=== PATIENT | male | born 1945 | race Caucasian/White ===

== ENCOUNTER 2018-03-20 17:26 | Emergency (ER) | payer MEDICARE ==
[~2018-03-20] VITALS: Ht 167.6 cm; Wt 81.2 kg
[2018-03-20] MEDS ORDERED: IV NORMAL SALINE 1000ML BAG 1,000 ML IV ONE (18:00)
[2018-03-20] MEDS ORDERED: fentaNYL PF VIAL 100 MCG/2 ML VIAL IV ONE (18:00)
[2018-03-20 18:40] VITALS: BP 194/86
[2018-03-20 18:40] LABS: BASO % 0 % (0-3); EOS # 0.3 x10^3/uL (0.0-0.7); EOS % 3 % (0-3); HEMATOCRIT 40.5 % (39.0-53.0); HEMOGLOBIN 14.4 g/dL (13.0-17.5); LYMPH # 1.7 x10^3/uL (1.0-4.8); LYMPH % 20 % (24-48); MEAN CORPUSCULAR HEMOGLOBIN 34 pg (25-35); MEAN CORPUSCULAR HGB CONC 36 g/dL (31-37); MEAN CORPUSCULAR VOLUME 95 fL (79-100); MONO # 0.8 x10^3/uL (0.0-1.1); MONO % 9 % (0-9); NEUT # 5.8 x10^3uL (1.8-7.7); NEUT % 67 % (31-73); PLATELET COUNT 199 x10^3/uL (140-400); RED BLOOD COUNT 4.28 x10^6/uL (4.30-5.70); RED CELL DISTRIBUTION WIDTH 13.1 % (11.5-14.5); WHITE BLOOD COUNT 8.6 x10^3/uL (4.0-11.0)
[2018-03-20 18:50] LABS: CALCIUM 9.5 mg/dL (8.5-10.1); GFR 73.2; POTASSIUM 4.3 mmol/L (3.5-5.1); PROTHROMBIN TIME PATIENT 14.5 SEC (11.7-14.0)
[2018-03-20] MEDS ORDERED: IOHEXOL 300 MG/ML 100ML VIAL. IV ONE (19:00)
[2018-03-20] MEDS ORDERED: CONTRAST GIVEN. MC PRN (19:00)
--- NOTE | 2018-03-20 19:25 | RAD ---
AP portable chest radiograph 03/20/2018 Clinical History: Fall with chest pain. An AP erect portable digital radiograph of the chest was obtained. Comparison study is dated 03/25/2004. The patient is post CABG procedure. The cardiac silhouette is mildly enlarged. The thoracic aorta is tortuous. No acute pulmonary infiltrate is seen. No pleural effusion or pneumothorax is noted. An acute fracture of the distal diaphysis of the left clavicle is seen. The distal fracture fragment is displaced superiorly with slight overriding of the fracture fragments noted. IMPRESSION: 1. Acute fracture of the distal left clavicle. 2. No additional acute abnormality is seen. Electronically signed by: Leo Sheridan MD (03/20/2018 7:22 PM) [facility]
--- NOTE | 2018-03-20 19:33 | RAD ---
CT scan of the head without contrast March 20, 2018 Clinical History: Fall down 13 stairs. Head injury. Technique: Unenhanced, contiguous, 5 mm axial sections were obtained through the head. One or more of the following individualized dose reduction techniques were utilized for this study: 1. Automated exposure control. 2. Adjustment of the mA and/or kV according to patient size. 3. Use of iterative reconstruction technique. Findings: No previous studies are available for comparison. There is generalized parenchymal atrophy. Areas of decreased attenuation are seen within the periventricular and subcortical white matter of both cerebral hemispheres consistent with areas of small vessel ischemic disease. No acute parenchymal abnormality is seen. No extra-axial fluid collection is noted. No skull fracture is seen. Impression: No acute intracranial abnormality is seen. CT scan of the cervical spine without contrast March 20, 2018 Clinical history: Neck pain post fall downstairs. Technique: Unenhanced, contiguous, 0.625 mm axial sections were obtained through the cervical spine. Axial, coronal and sagittal reconstructed images were obtained. One or more of the following individualized dose reduction techniques were utilized for this study: 1. Automated exposure control. 2. Adjustment of the mA and/or kV according to patient size. 3. Use of iterative reconstruction technique. Findings: Sagittal and coronal reconstructed images demonstrate minimal lateral curvature of the cervical spine, convex to the right. Degenerative changes are seen consisting of varying degrees of disc space narrowing, vertebral endplate sclerosis and minimal to mild anterior and posterior vertebral body osteophyte formation are seen throughout the mid and lower cervical disc spaces. Atherosclerotic calcification is seen in the region of the carotid bifurcations. No fracture or subluxation of the cervical vertebrae is seen. Degenerative changes are seen involving the uncovertebral and facet joints throughout the cervical disc spaces. Impression: No fracture or subluxation of the cervical vertebra is identified. Electronically signed by: Leo Sheridan MD (03/20/2018 7:30 PM) [facility]
--- NOTE | 2018-03-20 19:57 | PHYS DOC ---
Past Medical History Past Medical History: Anxiety, Diabetes-Type II, Hypertension, [place] Past Surgical History: Coronary Bypass Surgery, Other Additional Past Surgical Histo: R ELBOW, 9 CARIDAC STENTS, HERNIA REPAIR Alcohol Use: None Drug Use: None Adult General Chief Complaint Chief Complaint: TRAUMA ALERT HPI HPI Patient is a 73 year old male with history of diabetes type 2, hypertension, high cholesterol, hard of hearing, who presents today status post falling. Patient states he was walking up some steps when he tripped, he states he fell down 13 steps. He states he flipped when he fell. Patient denies any loss of consciousness, denies any neck pain. He is mostly complaining of left shoulder pain, right scapular pain, right lower rib pain, and right hip and pelvis pain. He ambulated into the emergency room. He states is on aspirin and Plavix. Review of Systems Review of Systems Constitutional: Denies fever or chills [] Eyes: Denies change in visual acuity, redness, or eye pain [] HENT: Denies nasal congestion or sore throat [] Respiratory: Reports right anterior lower rib pain. Denies cough or shortness of breath [] Cardiovascular: No additional information not addressed in HPI [] GI: Denies abdominal pain, nausea, vomiting, bloody stools or diarrhea [] : Denies dysuria or hematuria [] Musculoskeletal: Reports left shoulder pain, right scapular pain, right lower rib pain, and right hip and pelvis pain. Integument: Denies rash or skin lesions [] Neurologic: Denies headache, focal weakness or sensory changes [] All other systems were reviewed and found to be within normal limits, except as documented in this note. Current Medications Current Medications Current Medications Medications (Trade) Dose Ordered Sig/Rebecca Start Time Stop Time Status Last Admin Dose Admin Fentanyl Citrate (Fentanyl 2ml Vial) 50 mcg 1X ONCE 03/20/18 18:00 03/20/18 18:02 DC 03/20/18 18:31 50 MCG Info (CONTRAST GIVEN -- Rx MONITORING) 1 each PRN DAILY PRN 03/20/18 19:00 03/22/18 18:59 Iohexol (Omnipaque 300 Mg/ml) 75 ml 1X ONCE 03/20/18 19:00 03/20/18 19:01 DC 03/20/18 19:19 75 ML Morphine Sulfate (Morphine Sulfate) 10 mg STK-MED ONCE 03/20/18 20:45 03/20/18 20:46 DC Sodium Chloride 1,000 ml @ 1,000 mls/hr 1X ONCE 03/20/18 18:00 03/20/18 18:59 DC 03/20/18 18:32 1,000 MLS/HR Allergies Allergies Allergies Coded Allergies Type Severity Reaction Last Updated Verified No Known Drug Allergies 03/20/18 No Physical Exam Physical Exam Constitutional: Well developed, well nourished, no acute distress, non-toxic appearance. [] HENT: Normocephalic, atraumatic, bilateral external ears normal, oropharynx moist, no oral exudates, nose normal. [] Eyes: PERRLA, EOMI, conjunctiva normal, no discharge. [] Neck: Normal range of motion, no tenderness, supple, no stridor. [] Cardiovascular:Heart rate regular rhythm, no murmur [] Lungs & Thorax: Bilateral breath sounds clear to auscultation, tenderness on palpation of the right anterior ribs approximately ribs 9 and 10 mid clavicular line. Abdomen: Bowel sounds normal, soft, no tenderness, no masses, no pulsatile masses. [] Skin: Warm, dry, no erythema, no rash. [] Back: No tenderness, no CVA tenderness. [] Extremities: Left shoulder appears over sleeping home. There is tenderness of the ACM joint as well as clavicle of the left shoulder. There is limited range of motion to the left shoulder. Full range of motion to the left fingers. Adequate radial, medial, and ulnar sensation to the left upper extremity. +2 left radial pulse. Cap refill less than 2 seconds the left fingers. Right scapular with bruising. Tenderness on palpation of the scapula. Full range of motion to the right shoulder and upper extremity. +2 right radial pulse. Adequate radial, medial, ulnar sensation to the right upper extremity. +2 right radial pulse. Right hip with no obvious deformity. Diffuse tenderness of the lateral aspect of the hip. Full range of motion to the right and left hip. Adequate flexion and extension of bilateral lower extremities. +2 bilateral pedal pulses. Neurologic: Alert and oriented X 3, normal motor function, normal sensory function, no focal deficits noted. [] Psychologic: Affect normal, judgement normal, mood normal. [] Current Patient Data Vital Signs Vital Signs Date Time Temp Pulse Resp B/P (MAP) Pulse Ox O2 Delivery O2 Flow Rate FiO2 03/20/18 18:40 61 20 194/86 (122) 98 Room Air 03/20/18 17:40 98.6 98.6 Lab Values Laboratory Tests Test 03/20/18 18:30 03/20/18 19:50 White Blood Count 8.6 x10^3/uL (4.0-11.0) Red Blood Count 4.28 x10^6/uL (4.30-5.70) L Hemoglobin 14.4 g/dL (13.0-17.5) Hematocrit 40.5 % (39.0-53.0) Mean Corpuscular Volume 95 fL (79-100) Mean Corpuscular Hemoglobin 34 pg (25-35) Mean Corpuscular Hemoglobin Concent 36 g/dL (31-37) Red Cell Distribution Width 13.1 % (11.5-14.5) Platelet Count 199 x10^3/uL (140-400) Neutrophils (%) (Auto) 67 % (31-73) Lymphocytes (%) (Auto) 20 % (24-48) L Monocytes (%) (Auto) 9 % (0-9) Eosinophils (%) (Auto) 3 % (0-3) Basophils (%) (Auto) 0 % (0-3) Neutrophils # (Auto) 5.8 x10^3uL (1.8-7.7) Lymphocytes # (Auto) 1.7 x10^3/uL (1.0-4.8) Monocytes # (Auto) 0.8 x10^3/uL (0.0-1.1) Eosinophils # (Auto) 0.3 x10^3/uL (0.0-0.7) Basophils # (Auto) 0.0 x10^3/uL (0.0-0.2) Prothrombin Time 14.5 SEC (11.7-14.0) H Prothrombin Time INR 1.2 (0.8-1.1) H PTT 39 SEC (24-38) H Sodium Level 138 mmol/L (136-145) Potassium Level 4.3 mmol/L (3.5-5.1) Chloride Level 102 mmol/L (98-107) Carbon Dioxide Level 23 mmol/L (21-32) Anion Gap 13 (6-14) Blood Urea Nitrogen 26 mg/dL (8-26) Creatinine 1.0 mg/dL (0.7-1.3) Estimated GFR (Cockcroft-Gault) 73.2 Glucose Level 83 mg/dL (70-99) Calcium Level 9.5 mg/dL (8.5-10.1) Ethyl Alcohol Level < 10 mg/dL (0-10) Urine Collection Type Unknown Urine Color Yellow Urine Clarity Clear Urine pH 7.0 Urine Specific [place] 1.025 Urine Protein Negative mg/dL (NEG-TRACE) Urine Glucose (UA) Negative mg/dL (NEG) Urine Ketones (Stick) Negative mg/dL (NEG) Urine Blood Negative (NEG) Urine Nitrite Negative (NEG) Urine Bilirubin Negative (NEG) Urine Urobilinogen Dipstick 2.0 mg/dL (0.2 mg/dL) Urine Leukocyte Esterase Negative (NEG) Urine RBC Rare /HPF (0-2) Urine WBC Rare /HPF (0-4) Urine Squamous Epithelial Cells Few /LPF Urine Bacteria 0 /HPF (0-FEW) Urine Opiates Screen Neg (NEG) Urine Methadone Screen Neg (NEG) Urine Barbiturates Neg (NEG) Urine Phencyclidine Screen Neg (NEG) Urine Amphetamine/Methamphetamine Neg (NEG) Urine Benzodiazepines Screen Neg (NEG) Urine Cocaine Screen Neg (NEG) Urine Cannabinoids Screen Neg (NEG) Urine Ethyl Alcohol Neg (NEG) Laboratory Tests 03/20/18 18:30 Laboratory Tests 03/20/18 18:30 EKG EKG [] Radiology/Procedures Radiology/Procedures []PROCEDURE: CHEST AP ONLY AP portable chest radiograph 03/20/2018 Clinical History: Fall with chest pain. An AP erect portable digital radiograph of the chest was obtained. Comparison study is dated 03/25/2004. The patient is post CABG procedure. The cardiac silhouette is mildly enlarged. The thoracic aorta is tortuous. No acute pulmonary infiltrate is seen. No pleural effusion or pneumothorax is noted. An acute fracture of the distal diaphysis of the left clavicle is seen. The distal fracture fragment is displaced superiorly with slight overriding of the fracture fragments noted. IMPRESSION: 1. Acute fracture of the distal left clavicle. 2. No additional acute abnormality is seen. Electronically signed by: Leo Sheridan MD (03/20/2018 7:22 PM) [facility] DICTATED and SIGNED BY: LEO SHERIDAN MD DATE: 03/20/181918 PROCEDURE: CT CHEST ABD PELVIS W/CONTRAST CT scan of the chest, abdomen and pelvis with contrast to include a CT scan of the thoracic and lumbar spine dated 03/20/2018 CLINICAL HISTORY: Fall down 13 stairs with right-sided chest and abdominal pain. TECHNIQUE: After the intravenous administration of 75 cc of Omnipaque 300, contiguous, 5 mm axial sections were obtained through the chest, abdomen and pelvis. 3 mm reconstructed sagittal, axial and coronal images of the thoracic and lumbar spine were obtained One or more of the following individualized dose reduction techniques were utilized for this study: 1. Automated exposure control. 2. Adjustment of the mA and/or kV according to patient size. 3. Use of iterative reconstruction technique. FINDINGS: Surgical changes are seen consistent with a CABG procedure. No mediastinal hematoma is seen. Atherosclerotic calcification of the thoracic aorta and its branches is noted. The thoracic aorta is tortuous but tapers normally. There is mild cardiomegaly. Minimal dependent subsegmental atelectasis is seen involving both lungs. No area of consolidation is seen. No pneumothorax or pleural effusion is noted. An acute comminuted oblique fracture of the distal diaphysis/metaphysis of the left clavicle is seen. The major distal fracture fragment is displaced superiorly and slightly laterally. The liver has a slightly nodular contour suggestive of cirrhosis. No acute focal abnormality is seen. The spleen, pancreas, adrenal glands and left kidney are within normal limits. A 3 mm nonobstructing calculus is seen involving the lower pole of the right kidney. The gallbladder is well-distended. Atherosclerotic calcification of the abdominal aorta is seen. The abdominal aorta tapers normally. Air and stool is seen throughout the colon. There is no evidence of bowel obstruction. Images through the pelvis demonstrate the urinary bladder distended with urine. No free fluid is seen. No pelvic hematoma is noted. Very mild S-shaped curvature of the thoracolumbar spine is seen. Degenerative changes are seen involving the thoracic and throughout the lumbar spine. The patient is post lower lumbar laminectomy. No acute fracture or subluxation of the thoracic or lumbar vertebra is seen. IMPRESSION: 1. Acute comminuted fracture of the distal left clavicle. 2. No additional acute abnormality is seen. Electronically signed by: Leo Sheridan MD (03/20/2018 8:30 PM) [facility] DICTATED and SIGNED BY: LEO SHERIDAN MD DATE: 03/20/182007 PROCEDURE: CT HEAD AND CERVICAL SPINE WO CT scan of the head without contrast March 20, 2018 Clinical History: Fall down 13 stairs. Head injury. Technique: Unenhanced, contiguous, 5 mm axial sections were obtained through the head. One or more of the following individualized dose reduction techniques were utilized for this study: 1. Automated exposure control. 2. Adjustment of the mA and/or kV according to patient size. 3. Use of iterative reconstruction technique. Findings: No previous studies are available for comparison. There is generalized parenchymal atrophy. Areas of decreased attenuation are seen within the periventricular and subcortical white matter of both cerebral hemispheres consistent with areas of small vessel ischemic disease. No acute parenchymal abnormality is seen. No extra-axial fluid collection is noted. No skull fracture is seen. Impression: No acute intracranial abnormality is seen. CT scan of the cervical spine without contrast March 20, 2018 Clinical history: Neck pain post fall downstairs. Technique: Unenhanced, contiguous, 0.625 mm axial sections were obtained through the cervical spine. Axial, coronal and sagittal reconstructed images were obtained. One or more of the following individualized dose reduction techniques were utilized for this study: 1. Automated exposure control. 2. Adjustment of the mA and/or kV according to patient size. 3. Use of iterative reconstruction technique. Findings: Sagittal and coronal reconstructed images demonstrate minimal lateral curvature of the cervical spine, convex to the right. Degenerative changes are seen consisting of varying degrees of disc space narrowing, vertebral endplate sclerosis and minimal to mild anterior and posterior vertebral body osteophyte formation are seen throughout the mid and lower cervical disc spaces. Atherosclerotic calcification is seen in the region of the carotid bifurcations. No fracture or subluxation of the cervical vertebrae is seen. Degenerative changes are seen involving the uncovertebral and facet joints throughout the cervical disc spaces. Impression: No fracture or subluxation of the cervical vertebra is identified. Electronically signed by: Leo Sheridan MD (03/20/2018 7:30 PM) [facility] DICTATED and SIGNED BY: LEO SHERIDAN MD DATE: 03/20/181923 Course & Med Decision Making Course & Med Decision Making Pertinent Labs and Imaging studies reviewed. (See chart for details) This is a 73-year-old male patient presenting to the ED today after falling at home. He fell down 13 steps. No loss of consciousness. Denies any head or neck pain. He is complaining of Left shoulder pain, right scapular pain, right lower rib pain, and right hip and pelvis pain Left shoulder x-rays interpreted by radiologist were noted for-Acute comminuted fracture of the distal left clavicle. CT of the head, cervical spine, thoracic spine, lumbar spine, chest and abdomen were negative for any acute findings. Patient was discharged with hydrocodone and cyclobenzaprine as needed for pain. He was provided a sling in the ED. Ice elevation encouraged. Follow-up with orthopedic doctor by calling the office tomorrow. Dragon Disclaimer Dragon Disclaimer This electronic medical record was generated, in whole or in part, using a voice recognition dictation system. Departure Departure Impression: Primary Impression: Fall down steps Additional Impressions: Fracture of clavicle, left, closed Contusion of right hip Contusion of right scapular region Chest wall contusion Disposition: 01 HOME, SELF-CARE Condition: STABLE Referrals: ALBER NINA MD (PCP) PIERRE BRISCOE MD Call the orthopedic doctor tomorrow and set up a follow up appointment Patient Instructions: Clavicle Fracture, Contusion, Fall Prevention and Home Safety Additional Instructions: You were evaluated in the emergency room and noted to have left clavicle fracture after falling. Please contact the provided orthopedic doctor tomorrow and set up a follow-up appointment as an outpatient. Try to ice and elevate the extremity. Take the prescribed medications as needed for pain. Scripts Cyclobenzaprine Hcl (CYCLOBENZAPRINE HCL) 10 Mg Tablet 1 TAB PO TID, #30 TAB Prov: WILL OSEGUERA APRN 03/20/18 Hydrocodone/Apap 5-325 (NORCO 5-325 TABLET) 1 Each Tablet 1 TAB PO Q6HRS, #12 TAB Prov: WILL OSEGUERA INFORMATION TECHNOLOGY ADVISOR 03/20/18 Problem Qualifiers Primary Impression: Fall down steps Encounter type: initial encounter Qualified Codes: W10.8XXA - Fall (on) ( from) other stairs and steps, initial encounter Additional Impressions: Fracture of clavicle, left, closed Encounter type: initial encounter Clavicle location: lateral end Fracture alignment: nondisplaced Qualified Codes: S42.035A - Nondisplaced fracture of lateral end of left clavicle, initial encounter for closed fracture Contusion of right hip Encounter type: initial encounter Qualified Codes: S70.01XA - Contusion of right hip, initial encounter Contusion of right scapular region Encounter type: initial encounter Qualified Codes: S40.011A - Contusion of right shoulder, initial encounter Chest wall contusion Encounter type: initial encounter Laterality: right Qualified Codes: S20.211A - Contusion of right front wall of thorax, initial encounter WILL OSEGUERA APRN Mar 20, 2018 19:57
[2018-03-20 20:03] LABS: BILIRUBIN,URINE NEGATIVE (NEG); CLARITY,URINE CLEAR; COLOR,URINE YELLOW; NITRITE,URINE NEGATIVE (NEG); PROTEIN,URINE NEGATIVE (NEG-TRACE)
[2018-03-20 20:08] LABS: BARBITURATES NEG (NEG); BENZODIAZEPINES NEG (NEG); CANNABINOIDS NEG (NEG); COCAINE NEG (NEG); METHADONE NEG (NEG); OPIATES NEG (NEG); PHENCYCLIDINE NEG (NEG)
[2018-03-20 20:10] LABS: AMPHETAMINE/METHAMPHETAMINE NEG (NEG)
[2018-03-20 20:15] LABS: BACTERIA,URINE 0 /HPF (0-FEW); RBC,URINE RARE /HPF (0-2); SQUAMOUS EPITHELIAL CELL,UR FEW /LPF; WBC,URINE RARE /HPF (0-4)
--- NOTE | 2018-03-20 20:33 | RAD ---
CT scan of the chest, abdomen and pelvis with contrast to include a CT scan of the thoracic and lumbar spine dated 03/20/2018 CLINICAL HISTORY: Fall down 13 stairs with right-sided chest and abdominal pain. TECHNIQUE: After the intravenous administration of 75 cc of Omnipaque 300, contiguous, 5 mm axial sections were obtained through the chest, abdomen and pelvis. 3 mm reconstructed sagittal, axial and coronal images of the thoracic and lumbar spine were obtained One or more of the following individualized dose reduction techniques were utilized for this study: 1. Automated exposure control. 2. Adjustment of the mA and/or kV according to patient size. 3. Use of iterative reconstruction technique. FINDINGS: Surgical changes are seen consistent with a CABG procedure. No mediastinal hematoma is seen. Atherosclerotic calcification of the thoracic aorta and its branches is noted. The thoracic aorta is tortuous but tapers normally. There is mild cardiomegaly. Minimal dependent subsegmental atelectasis is seen involving both lungs. No area of consolidation is seen. No pneumothorax or pleural effusion is noted. An acute comminuted oblique fracture of the distal diaphysis/metaphysis of the left clavicle is seen. The major distal fracture fragment is displaced superiorly and slightly laterally. The liver has a slightly nodular contour suggestive of cirrhosis. No acute focal abnormality is seen. The spleen, pancreas, adrenal glands and left kidney are within normal limits. A 3 mm nonobstructing calculus is seen involving the lower pole of the right kidney. The gallbladder is well-distended. Atherosclerotic calcification of the abdominal aorta is seen. The abdominal aorta tapers normally. Air and stool is seen throughout the colon. There is no evidence of bowel obstruction. Images through the pelvis demonstrate the urinary bladder distended with urine. No free fluid is seen. No pelvic hematoma is noted. Very mild S-shaped curvature of the thoracolumbar spine is seen. Degenerative changes are seen involving the thoracic and throughout the lumbar spine. The patient is post lower lumbar laminectomy. No acute fracture or subluxation of the thoracic or lumbar vertebra is seen. IMPRESSION: 1. Acute comminuted fracture of the distal left clavicle. 2. No additional acute abnormality is seen. Electronically signed by: Leo Sheridan MD (03/20/2018 8:30 PM) [facility]
[2018-03-20] MEDS ORDERED: MORPHINE SULFATE 10 MG/ML VIAL. ONE (20:45)
[2018-03-20] MEDS ORDERED: HYDR-971 PO (20:55)
[2018-03-20] MEDS ORDERED: CYCL10TA2 PO (20:55)
[2018-03-20] MEDS ORDERED: MORPHINE SULFATE 10 MG/ML VIAL. IV ONE (21:00)
--- NOTE | 2018-03-20 21:27 | RAD ---
AP radiograph of the pelvis to include AP and lateral radiographs of the right hip March 20, 2018 CLINICAL HISTORY: Fall from stairs. An AP digital radiograph of the pelvis to include both hips was obtained. AP and lateral radiographs of the right hip were obtained. No pelvic bone fracture is seen. Both hips are intact. Specifically no fracture or dislocation is seen. Mild degenerative changes are seen involving both hips. The patient is post laminectomy at L4-5. Degenerative changes are seen involving the facet joints and the mid and lower lumbar spine. IMPRESSION: No fracture or dislocation is seen. Electronically signed by: Leo Sheridan MD (03/20/2018 9:24 PM) [facility]
--- NOTE | 2018-03-20 22:52 | RAD ---
Three-view left shoulder radiographs to include the right scapula 03/20/2018 Clinical history: Fall down stairs. Left shoulder and right scapula pain. AP internal and external rotation and transscapular digital radiographs of the left shoulder were obtained. AP and lateral digital radiographs of the right scapula were obtained. An acute comminuted fracture of the distal diaphysis/metaphysis of the left clavicle is noted. A component of the fracture is displaced inferiorly. The distal fracture fragment is displaced superiorly and slightly laterally. This fracture fragment is subluxed superiorly relative to the acromion at the AC joint. No additional fracture of the left shoulder is seen. No fracture or dislocation of the right scapula or shoulder is noted. Mild to moderate degenerative changes are seen involving both AC joints and both glenohumeral joints. IMPRESSION: 1. Acute comminuted fracture of the distal left clavicle. 2. No fracture or dislocation of the right scapula is seen. Electronically signed by: Leo Sheridan MD (03/20/2018 10:49 PM) [facility]
== END 2018-03-20 21:45 | disposition home or self-care (01) ==
LOC: ER 17:26
DX: S42.035A Nondisplaced fracture of lateral end of left clavicle, initial encounter for closed fracture (principal); S70.01XA Contusion of right hip, initial encounter; S20.211A Contusion of right front wall of thorax, initial encounter; S40.011A Contusion of right shoulder, initial encounter; I10 Essential (primary) hypertension; E11.9 Type 2 diabetes mellitus without complications; F41.9 Anxiety disorder, unspecified; I25.2 Old myocardial infarction; Z95.5 Presence of coronary angioplasty implant and graft; W10.8XXA Fall (on) (from) other stairs and steps, initial encounter; Y93.01 Activity, walking, marching and hiking; Y99.8 Other external cause status; Y92.89 Other specified places as the place of occurrence of the external cause
CPT/HCPCS: 36415; 70450; 71045; 71260; 72125; 72128; 72131; 73010; 73030; 73502; 74177; 80048; 80307; 81001; 85025; 85610; 85730; 86850; 86900; 86901; 96374; 96375; 99285; G0480; J2270; J3010; J7030; Q9967; G0479

== ENCOUNTER 2021-10-12 10:08 | Emergency (ER) | payer MEDICARE, OTHER ==
[~2021-10-12] VITALS: Ht 167.6 cm; Wt 88.6 kg
[~2021-10-12 10:08] MED LIST: CYCL10TA19 PO; HYDR-3164 PO
--- NOTE | 2021-10-12 10:55 | PHYS DOC ---
Past Medical History Past Medical History: Anxiety, Diabetes-Type II, Hypertension, MO Past Surgical History: Coronary Bypass Surgery, Other Additional Past Surgical Histo: R ELBOW, 11CARIDAC STENTS, HERNIA REPAIR, Smoking Status: Never Smoker Alcohol Use: None Drug Use: None General Adult EDM: Chief Complaint: MECHANICAL FALL HPI: HPI: Patient is a 76 year old male who presents with left lower leg pain after fa lling at home today. He reports that his left leg "gave out" which happens often. He was walking up and down the stairs of the basement, which she often does. He fell onto his lateral left leg. He has some anterior knee pain as well. He was able to get up, but he cannot bear full weight on his leg without pain. He denies hip pain. He denies head injury, dizziness, chest pain, dyspnea, palpitations. No syncope or near syncope reported. No medications taken prior to arrival. He was able to use his walker at home in order to come to the ER. Review of Systems: Review of Systems: Constitutional: Denies fever or chills. [] HENT: Denies nasal congestion or sore throat. [] Respiratory: Denies cough or shortness of breath. [] Cardiovascular: Denies chest pain or edema. [] GI: Denies abdominal pain, nausea, vomiting Musculoskeletal: Denies back pain. Reports left lower leg pain and swelling. Integument: Superficial abrasion of the left lateral calf Neurologic: Denies headache, focal weakness or sensory changes. Denies dizziness or syncope. Endocrine: Denies polyuria or polydipsia. [] Lymphatic: Denies swollen glands. [] Psychiatric: Denies depression or anxiety. [] Heart Score: C/O Chest Pain: No Risk Factors: Risk Factors: DM, Current or recent (<one month) smoker, HTN, HLP, family history of CAD, obesity. Risk Scores: Score 0 - 3: 2.5% MACE over next 6 weeks - Discharge Home Score 4 - 6: 20.3% MACE over next 6 weeks - Admit for Clinical Observation Score 7 - 10: 72.7% MACE over next 6 weeks - Early Invasive Strategies Allergies: Allergies: Allergies Coded Allergies Type Severity Reaction Last Updated Verified No Known Drug Allergies 03/20/18 No Physical Exam: PE: Constitutional: Well developed, well nourished, no acute distress, non-toxic appearance. [] HENT: Normocephalic, atraumatic Neck: Trachea midline Cardiovascular: +2 dorsalis pedis and +2 posterior tibial pulse left lower extremity Lungs & Thorax: Respirations are nonlabored Skin: Warm, dry, no erythema. Very faint, superficial abrasion of the proximal left lower leg, lateral calf area. No open wounds or lacerations. No significant tenderness of the skin lesion. Back: No tenderness, no CVA tenderness. [] Extremities: There is bilateral lower extremity pitting edema, left lower extremity appears to be more swollen than the right. There is tenderness to palpation of of the left anterior knee and left proximal fibula area. No ligamentous laxity noted. Full active and passive range of motion of the left hip, left knee, left ankle and foot. No palpable crepitus or step-offs. No calf tenderness. Neurologic: Alert and oriented X 3, normal motor function, normal sensory function, no focal deficits noted. [] Psychologic: Affect normal, judgement normal, mood normal. [] Current Patient Data: Vital Signs: Vital Signs Date Time Temp Pulse Resp B/P (MAP) Pulse Ox O2 Delivery O2 Flow Rate FiO2 10/12/21 10:42 98.4 74 18 164/78 (106) 97 Room Air 98.4 EKG: EKG: EKG is interpreted at 1104 Rhythm is sinus Rate is 67 bpm Corea is left LBBB No STEMI Radiology/Procedures: Radiology/Procedures: IMAGING REPORT Signed PATIENT: ERI SIEGEL ACCOUNT: [id number] : 1945 LOCATION: ER AGE: 76 SEX: M EXAM STATUS: REG ER ORD. PHYSICIAN: MARICARMEN VICTORIA DO REASON: LE pain, swelling PROCEDURE: TIBIA FIBULA LEFT 2 views left tib-fib without comparison for left lower survey pain and swelling. FINDINGS: There is a minimally displaced proximal fibular diaphyseal fracture, with very subtle medial angulation. No other acute osseous abnormalities. Ankle mortise is symmetric. Vascular calcifications are seen. IMPRESSION: 1. Nondisplaced minimally angulated proximal fibular diaphyseal fracture. Electronically signed by: Mikael Watkins MD (10/12/2021 12:01 PM) [id number] DICTATED and SIGNED BY: MIKAEL WATKINS MD DATE: 10/12/21 [id number] 0 IMAGING REPORT Signed PATIENT: ERI SIEGEL ACCOUNT: [id number] : 1945 LOCATION: ER AGE: 76 SEX: M EXAM STATUS: REG ER ORD. PHYSICIAN: MARICARMEN VICTORIA DO REASON: LE swelling, pain PROCEDURE: VENOUS LOWER EXTREMITY LEFT STUDY: US DPLX VENOUS EXTREMITY LOWER LT INDICATION: Left leg swelling, pain. TECHNIQUE: Color-flow and pulsed wave duplex ultrasound with compression of venous structures of the left lower extremity. COMPARISON: None Available. FINDINGS: Duplex ultrasound with compression of the deep venous structures of the left lower extremity from the common femoral vein through the popliteal vein is negative for DVT. The posterior tibial and peroneal veins are segmentally visualized and patent where seen. Normal venous waveforms and augmentation are noted throughout. There is an incidental heterogeneous fluid collection measuring 5.3 x 1.7 x 2.5 cm in the popliteal fossa. IMPRESSION: 1. No deep venous thrombosis of the left lower extremity. 2. Popliteal cyst measuring 5.3 x 1.7 x 2.5 cm Electronically signed by: Fran Almanzar MD (10/12/2021 12:12 PM) [id number] DICTATED and SIGNED BY: FRAN ALMANZAR MD DATE: 10/12/21 [id number] 0 IMAGING REPORT Signed PATIENT: ERI SIEGEL ACCOUNT: [id number] : 1945 LOCATION: ER AGE: 76 SEX: M EXAM STATUS: REG ER ORD. PHYSICIAN: MARICARMEN VICTORIA DO REASON: LE pain, swelling PROCEDURE: KNEE LEFT 3V Exam: XR KNEE _3 VIEWS_LT History: Pain and swelling Comparison: None. Findings: Osseous mineralization is normal. Nondisplaced transverse fracture at the proximal fibular metaphysis. Degenerative changes with narrowing of the lateral tibiofemoral compartment and small tricompartmental osteophytes. Surgical clips at the medial knee. Atherosclerotic vascular calcifications. Impression: 1. Nondisplaced transverse fracture at the proximal fibular metaphysis. Electronically signed by: Fran Almanzar MD (10/12/2021 12:02 PM) [id number] DICTATED and SIGNED BY: FRAN ALMANZAR MD DATE: 10/12/21 [id number] 0 Course & Med Decision Making: Course & Med Decision Making Pertinent Labs and Imaging studies reviewed. (See chart for details) The patient declined any pain medications here. He agreed to take a prescription for discharge home. I sent prescriptions for pain medicine to his preferred pharmacy. He is placed in a knee immobilizer. I discussed the findings, differential diagnosis and plan of care with the patient and his . Home care instructions are provided. I explained the importance of RICE. He should follow-up with his primary care physician, outpatient orthopedic follow- up is also given. He verbalizes understanding. Angelyon Disclaimer: Enriqueta Disclaimer: This electronic medical record was generated, in whole or in part, using a voice recognition dictation system. Departure Departure Impression: Primary Impression: Nondisplaced fracture of proximal end of left fibula Disposition: HOME / SELF CARE / HOMELESS Condition: STABLE Referrals: LORAINE GARCIA D.O. (PCP) KENNY DAILEY Jr. DO Patient Instructions: Fibular Fracture with Rehab-SportsMed, Tibial and Fibular Fracture, Adult Additional Instructions: You have a fracture of your fibula bone, which is near your knee, at the upper portion of your lower leg, near your calf. This will not require surgery and should heal on its own. Please return for new injury or trauma, if you develop more severe uncontrolled pain, if you develop any more severe swelling, temperature 100.4 or higher, chest pain, shortness of breath, weakness, if you have any new injury or trauma or for any other concerns. Use the pain medicine as needed/as directed. Follow-up with your primary care physician. You have also been given information in for outpatient orthopedic follow up as well. Scripts Hydrocodone Bit/Acetaminophen (HYDROCODONE-APAP 5-325 ) 1 Tab Tablet 1 TAB PO PRN Q6HRS PRN for PAIN, #20 TAB 0 Refills Prov: MARICARMEN VICTORIA DO 10/12/21 MARICARMEN VICTORIA DO Oct 12, 2021 10:55
--- NOTE | 2021-10-12 12:03 | RAD ---
2 views left tib-fib without comparison for left lower survey pain and swelling. FINDINGS: There is a minimally displaced proximal fibular diaphyseal fracture, with very subtle media l angulation. No other acute osseous abnormalities. Ankle mortise is symmetric. Vascular calcificatio ns are seen. IMPRESSION: 1. Nondisplaced minimally angulated proximal fibular diaphyseal fracture. Electronically signed by: Mikael Calvin MD (10/12/2021 12:01 PM) [id number]
--- NOTE | 2021-10-12 12:05 | RAD ---
Exam: XR KNEE _3 VIEWS_LT History: Pain and swelling Comparison: None. Findings: Osseous mineralization is normal. Nondisplaced transverse fracture at the proximal fibular metaphysis . Degenerative changes with narrowing of the lateral tibiofemoral compartment and small tricompartmen mel osteophytes. Surgical clips at the medial knee. Atherosclerotic vascular calcifications. Impression: 1. Nondisplaced transverse fracture at the proximal fibular metaphysis. Electronically signed by: Fran Nelson MD (10/12/2021 12:02 PM) [id number]
--- NOTE | 2021-10-12 12:14 | RAD ---
STUDY: US DPLX VENOUS EXTREMITY LOWER LT INDICATION: Left leg swelling, pain. TECHNIQUE: Color-flow and pulsed wave duplex ultrasound with compression of venous structures of the left lower extremity. COMPARISON: None Available. FINDINGS: Duplex ultrasound with compression of the deep venous structures of the left lower extremity from the common femoral vein through the popliteal vein is negative for DVT. The posterior tibial and peroneal veins are segmentally visualized and patent where seen. Normal veno us waveforms and augmentation are noted throughout. There is an incidental heterogeneous fluid collection measuring 5.3 x 1.7 x 2.5 cm in the popliteal f luis. IMPRESSION: 1. No deep venous thrombosis of the left lower extremity. 2. Popliteal cyst measuring 5.3 x 1.7 x 2.5 cm Electronically signed by: Fran Nelson MD (10/12/2021 12:12 PM) [id number]
[2021-10-12] MEDS ORDERED: HYDR-2761 PO (12:24)
[2021-10-12 13:00] VITALS: BP 182/83
--- NOTE | 2021-10-13 10:20 | EKG ---
[facility] [address] [place] [address] Test Date: 2021-10-12 Test Time: 10:56:43 Pat Name: ERI SIEGEL Department: Room: Gender: M Proposal Rep: : 1945 Requested By: MARICARMEN VICTORIA Order Number: [id number] Reading MD: Darrell Mukherjee MD Measurements Intervals [place] Rate: 67 P: 39 LA: 186 QRS: 10 QRSD: 142 T: 137 QT: 404 QTc: 430 Interpretive Statements SINUS RHYTHM LEFT BUNDLE BRANCH BLOCK Electronically Signed On 10-17-2021 11:23:25 AUTO WASH BUFFER by Darrell Mukherjee MD
== END 2021-10-12 13:00 | disposition home or self-care (01) ==
LOC: ER 10:08
DX: S82.402A Unspecified fracture of shaft of left fibula, initial encounter for closed fracture (principal); E11.9 Type 2 diabetes mellitus without complications; I10 Essential (primary) hypertension; I25.2 Old myocardial infarction; Z95.1 Presence of aortocoronary bypass graft; Z95.5 Presence of coronary angioplasty implant and graft; W10.8XXA Fall (on) (from) other stairs and steps, initial encounter; Y93.01 Activity, walking, marching and hiking; Y92.098 Other place in other non-institutional residence as the place of occurrence of the external cause; Y99.8 Other external cause status
CPT/HCPCS: 29505; 73562; 73590; 93005; 93971; 99284-25; 99285-25